=== PATIENT | male | born 1995 | race Caucasian/White ===

== ENCOUNTER 2017-02-09 07:59 | Emergency (ER) | payer OTHER ==
[~2017-02-09] VITALS: Ht 182.9 cm; Wt 74.8 kg
[2017-02-09] MEDS ORDERED: IBUP200T58 PO (08:15)
--- NOTE | 2017-02-09 08:42 | RAD ---
Three-view right hand study History: Punching injury. Pain and swelling. Findings: There is a transverse fracture of the midshaft of the fourth metacarpal of the right hand. No displacement is seen. There is posterior and medial angulation of the apex of the fracture. No dislocation or osteolytic process is seen. IMPRESSION: Posttraumatic acute fracture of the fourth metacarpal of the right hand.
[2017-02-09] MEDS ORDERED: MORPHINE SULFATE 4 MG/ML DISP.SYRIN. ONE (08:48)
--- NOTE | 2017-02-09 09:05 | PHYS DOC ---
Adult General Chief Complaint Chief Complaint: HAND PROBLEM HPI HPI Patient is a 21 year old M who presents with pain in the right hand after hitting a board during [employer] practice last night. He feels this pain is dull constant and worse with movement. His pain is better with rest. He has no other associated symptoms Review of Systems Review of Systems Constitutional: Denies fever or chills [] Eyes: Denies change in visual acuity, redness, or eye pain [] HENT: Denies nasal congestion or sore throat [] Respiratory: Denies cough or shortness of breath [] Cardiovascular: No additional information not addressed in HPI [] GI: Denies abdominal pain, nausea, vomiting, bloody stools or diarrhea [] : Denies dysuria or hematuria [] Musculoskeletal: Denies back pain Integument: Denies rash or skin lesions [] Neurologic: Denies headache, focal weakness or sensory changes [] Endocrine: Denies polyuria or polydipsia [] Family History Family History Noncontributory Current Medications Current Medications Medications reviewed Current Medications Medications (Trade) Dose Ordered Sig/Kirk Start Time Stop Time Status Last Admin Dose Admin Morphine Sulfate (Morphine 4mg Syringe) 4 mg STK-MED ONCE 02/09/17 08:48 02/09/17 08:49 DC Allergies Allergies Allergies Coded Allergies Type Severity Reaction Last Updated Verified No Known Drug Allergies 02/09/17 No Physical Exam Physical Exam Constitutional: Well developed, well nourished, no acute distress, non-toxic appearance. [] HENT: Normocephalic, atraumatic, Eyes: EOMI, conjunctiva normal, no discharge. [] Neck: Normal range of motion, no tenderness, supple, no stridor. [] Cardiovascular:Heart rate regular rhythm, no murmur [] Lungs & Thorax: Bilateral breath sounds clear to auscultation [] Extremities: no cyanosis, no clubbing, ROM intact, no edema. [] Mild swelling over the dorsal medial right hand with moderate tenderness over the fourth metacarpal Neurologic: Alert and oriented X 3, normal motor function, normal sensory function, no focal deficits noted. [] Psychologic: Affect normal, judgement normal, mood normal. [] Current Patient Data Vital Signs Normal vital signs. Please review nursing documentation for specifics EKG EKG [] Radiology/Procedures Radiology/Procedures Hand x-ray Impressions: Fracture of the fourth metacarpal with mild angulation Course & Med Decision Making Course & Med Decision Making Pertinent Labs and Imaging studies reviewed. (See chart for details) He was placed in an ulnar gutter splint. Follow-up imaging was declined. Dragon Disclaimer Dragon Disclaimer This chart was dictated in whole or in part using Voice Recognition software in a busy, high-work load, and often noisy Emergency Department environment. It may contain unintended and wholly unrecognized errors or omissions. Departure Departure: Impression: Primary Impression: Fracture of fourth metacarpal bone of right hand Disposition: HOME, SELF-CARE Condition: STABLE Referrals: CHANTELLE ANN MD (PCP) Patient Instructions: Hand Fracture Additional Instructions: Terrence was seen in the emergency department for hand pain. No emergency medical condition was found on history or physical exam. He was found to have a fracture of his fourth finger on his right hand by x-ray. His hand was placed in a splint and he was advised follow-up with orthopedics in the next 7-10 days for further management. Problem Qualifiers Primary Impression: Fracture of fourth metacarpal bone of right hand Encounter type: initial encounter Fracture type: closed Metacarpal location : shaft Fracture alignment: displaced Qualified Codes: S62.324A - Displaced fracture of shaft of fourth metacarpal bone, right hand, initial encounter for closed fracture CHANTELLE CAVAZOS MD Feb 09, 2017 09:05
[2017-02-09 09:26] VITALS: BP 117/65
[2017-02-09] MEDS ORDERED: MORPHINE SULFATE 4 MG/ML DISP.SYRIN. IM ONE (09:30)
== END 2017-02-09 09:26 | disposition home or self-care (01) ==
LOC: ER 07:59
DX: S62.324A Displaced fracture of shaft of fourth metacarpal bone, right hand, initial encounter for closed fracture (principal); W21.89XA Striking against or struck by other sports equipment, initial encounter; Y93.89 Activity, other specified; Y99.8 Other external cause status; Y92.89 Other specified places as the place of occurrence of the external cause
CPT/HCPCS: 29125; 73130; 99284-25